=== PATIENT | female | born 1985 | race Caucasian/White ===

== ENCOUNTER → 2017-07-01 | Outpatient (CLI) | payer SELFPAY | LOC: RAD 18:12 | DX: M79.641 Pain in right hand (principal); Z91.81 History of falling ==

== ENCOUNTER 2018-09-18 22:30 | Emergency (ER) | payer SELFPAY ==
[~2018-09-18] VITALS: Ht 160 cm; Wt 54.5 kg
[~2018-09-18 22:30] MED LIST: ZOFRAN4 M2 PO
[2018-09-18 23:18] LABS: BASO # 0.1 (0.02-0.10); EOS # 0.2 (0.04-0.40); EOS % 1.7 % (1.0-5.0); HEMATOCRIT 42.4 % (37.0-47.0); HEMOGLOBIN 13.8 g/dL (12.5-16.0); LYMPH# 2.6 (1.50-4.00); MEAN CELL VOLUME 96 fl (78-100); MEAN CORPUSCULAR HEMOGLOBIN 31 pg (27-31); MEAN CORPUSCULAR HGB CONC 33 g/dL (33-37); MEAN PLATELET VOLUME 10.4 fl (7.4-10.4); MONO # 0.7 (0.20-0.80); NEU # 5.4 (1.40-6.50); PLATELET COUNT 222 K/mm3 (130-400); RED BLOOD COUNT 4.43 M/mm3 (4.10-5.30); RED CELL DISTRIBUTION WIDTH 12.2 % (11.5-14.5)
[2018-09-18 23:19] LABS: ALBUMIN 4.1 g/dL (3.5-5.0); ALCOHOL IN-HOUSE 184 mg/dL; ALT/SGPT 16 U/L (9-52); AST-SGOT 20 U/L (14-36); CALCIUM 9.1 mg/dL (8.4-10.2); CARBON DIOXIDE 24 mmol/L (22-30); GLUCOSE 84 mg/dL (65-105); POTASSIUM 3.9 mmol/L (3.6-5.0); SODIUM 144 mmol/L (137-145); TOTAL BILIRUBIN 0.3 mg/dL (0.2-1.3); TOTAL PROTEIN 7.1 g/dL (6.3-8.2)
[2018-09-18 23:28] LABS: ACETAMINOPHEN < 4 ug/mL (10-30)
[2018-09-18 23:39] LABS: URINE COLOR LT YELLOW
[2018-09-18 23:40] LABS: URINE APPEARANCE CLEAR; URINE BILIRUBIN NEGATIVE (NEGATIVE); URINE BLOOD NEGATIVE (NEGATIVE); URINE GLUCOSE NEGATIVE (NEGATIVE); URINE KETONE NEGATIVE (NEGATIVE); URINE LEUKOCYTE ESTERASE NEGATIVE (NEGATIVE); URINE NITRATE NEGATIVE (NEGATIVE); URINE PROTEIN(semi-quant) NEGATIVE (NEGATIVE); URINE UROBILINOGEN NORMAL (NORMAL); URINE WBC 0-1 /hpf (0-3)
[2018-09-19 05:30] VITALS: BP 114/74
== END 2018-09-19 06:00 | disposition home or self-care (01) ==
LOC: ED 22:30
PROVIDERS: Family Medicine
DX: R45.851 Suicidal ideations (principal); F32.9 Major depressive disorder, single episode, unspecified

== ENCOUNTER 2019-01-22 11:46 | Emergency (ER) | payer SELFPAY ==
[2019-01-22 14:21] VITALS: BP 123/75
== END 2019-01-22 13:53 | disposition home or self-care (01) ==
LOC: ED 11:46
DX: T45.0X1A Poisoning by antiallergic and antiemetic drugs, accidental (unintentional), initial encounter (principal); F41.9 Anxiety disorder, unspecified; F43.10 Post-traumatic stress disorder, unspecified

== ENCOUNTER 2019-02-20 00:09 | Emergency (ER) | payer SELFPAY ==
[~2019-02-20] VITALS: Ht 167.6 cm; Wt 68.2 kg
[2019-02-20 02:00] VITALS: BP 106/66
== END 2019-02-20 02:00 | disposition home or self-care (01) ==
LOC: ED 00:09
DX: S06.0X9A Concussion with loss of consciousness of unspecified duration, initial encounter (principal); F19.10 Other psychoactive substance abuse, uncomplicated; S50.12XA Contusion of left forearm, initial encounter; F17.210 Nicotine dependence, cigarettes, uncomplicated; Y04.8XXA Assault by other bodily force, initial encounter; Y92.009 Unspecified place in unspecified non-institutional (private) residence as the place of occurrence of the external cause

== ENCOUNTER 2019-05-02 13:08 | Emergency (ER) | payer SELFPAY ==
[~2019-05-02] VITALS: Ht 167.6 cm; Wt 75.0 kg
[2019-05-02] MEDS ORDERED: FLUOXETINE HCL20 MG PO (13:18)
[2019-05-02] MEDS ORDERED: TRAVEL SICKNESS25 M1 PO (13:18)
[2019-05-02] MEDS ORDERED: AUGMENTIN 875-1 EAC1 PO (13:34)
[2019-05-02 13:48] VITALS: BP 140/83
== END 2019-05-02 13:48 | disposition home or self-care (01) ==
LOC: ED 13:08
DX: S01.25XA Open bite of nose, initial encounter (principal); J34.0 Abscess, furuncle and carbuncle of nose; F17.210 Nicotine dependence, cigarettes, uncomplicated; Y04.1XXA Assault by human bite, initial encounter

== ENCOUNTER 2019-05-14 22:29 | Emergency (ER) | payer SELFPAY ==
[~2019-05-14] VITALS: Ht 167.6 cm; Wt 72.7 kg
[~2019-05-14 22:29] MED LIST changes: +AUGMENTIN 875-1 EAC1 PO; +FLUOXETINE HCL20 MG PO; +TRAVEL SICKNESS25 M1 PO
[2019-05-14 22:35] VITALS: BP 118/78
== END 2019-05-14 23:17 | disposition home or self-care (01) ==
LOC: ED 22:29
DX: F41.0 Panic disorder [episodic paroxysmal anxiety] (principal); F32.9 Major depressive disorder, single episode, unspecified; F17.210 Nicotine dependence, cigarettes, uncomplicated; Z91.14 Patient's other noncompliance with medication regimen; Z91.5 Personal history of self-harm

== ENCOUNTER 2019-05-30 01:14 | Emergency (ER) | payer SELFPAY ==
[~2019-05-30] VITALS: Ht 167.6 cm; Wt 72.7 kg
[2019-05-30] MEDS ORDERED: INDOMETHACIN50 M2 PO (01:18)
[2019-05-30 01:39] LABS: EOS % 0.6 % (1.0-5.0); HEMATOCRIT 45.1 % (37.0-47.0); LYMPH# 2.2 (1.50-4.00); MEAN CELL VOLUME 96 fl (78-100); MEAN CORPUSCULAR HEMOGLOBIN 32 pg (27-31); MEAN CORPUSCULAR HGB CONC 33 g/dL (33-37); MEAN PLATELET VOLUME 9.7 fl (7.4-10.4); MONO # 0.8 (0.20-0.80); PLATELET COUNT 231 K/mm3 (130-400); RED BLOOD COUNT 4.68 M/mm3 (4.10-5.30); RED CELL DISTRIBUTION WIDTH 12.7 % (11.5-14.5); WHITE BLOOD COUNT 7.1 K/mm3 (4.8-10.8)
[2019-05-30 01:49] LABS: ALBUMIN 3.9 g/dL (3.5-5.0)
[2019-05-30 01:50] LABS: POTASSIUM 3.6 mmol/L (3.5-5.1); SODIUM 138 mmol/L (136-145)
[2019-05-30 01:51] LABS: CALCIUM 8.5 mg/dL (8.3-10.5)
[2019-05-30 01:52] LABS: GLUCOSE 88 mg/dL (65-105); TOTAL PROTEIN 6.8 g/dL (6.4-8.3)
[2019-05-30 01:53] LABS: CARBON DIOXIDE 22 mmol/L (22-29)
[2019-05-30 01:54] LABS: TOTAL BILIRUBIN 0.4 mg/dL (0.2-1.2)
[2019-05-30 01:55] LABS: ALCOHOL IN-HOUSE 185 mg/dL (<10)
[2019-05-30 01:57] LABS: AST-SGOT 20 U/L (5-34)
[2019-05-30 01:59] LABS: ALT/SGPT 17 U/L (0-55)
[2019-05-30 02:05] LABS: ACETAMINOPHEN < 1 ug/mL
[2019-05-30 02:09] LABS: URINE APPEARANCE CLEAR; URINE BILIRUBIN NEGATIVE (NEGATIVE); URINE BLOOD NEGATIVE (NEGATIVE); URINE COLOR YELLOW; URINE GLUCOSE NEGATIVE (NEGATIVE); URINE KETONE NEGATIVE (NEGATIVE); URINE LEUKOCYTE ESTERASE NEGATIVE (NEGATIVE); URINE NITRATE NEGATIVE (NEGATIVE); URINE PROTEIN(semi-quant) NEGATIVE (NEGATIVE); URINE UROBILINOGEN NORMAL (NORMAL); URINE WBC 0-1 /hpf (0-3)
[2019-05-30 09:58] VITALS: BP 95/70
== END 2019-05-30 10:05 | disposition home or self-care (01) ==
LOC: ED 01:14
PROVIDERS: Nurse Practitioner Family
DX: F32.9 Major depressive disorder, single episode, unspecified (principal); F41.9 Anxiety disorder, unspecified; F43.10 Post-traumatic stress disorder, unspecified; F17.210 Nicotine dependence, cigarettes, uncomplicated; Z98.890 Other specified postprocedural states

== ENCOUNTER → 2019-10-26 | Outpatient (CLI) | payer SELFPAY ==
[~2019-10-26] MED LIST changes: +INDOMETHACIN50 M2 PO
== END ==
LOC: LAB 12:12
DX: R50.9 Fever, unspecified (principal); R05 Cough; R06.2 Wheezing; R43.2 Parageusia

== ENCOUNTER 2020-01-16 22:15 | Emergency (ER) | payer OTHER ==
[2020-01-16 22:38] VITALS: BP 127/89
[2020-01-16] MEDS ORDERED: PROAIR HFA0.09 MG/AC IH (22:52)
[2020-01-16 23:09] LABS: BASO # 0.1 (0.02-0.10); EOS # 0.4 (0.04-0.40); HEMATOCRIT 47.1 % (37.0-47.0); HEMOGLOBIN 15.8 g/dL (12.5-16.0); LYMPH# 3.2 (1.50-4.00); MEAN CELL VOLUME 98 fl (78-100); MEAN CORPUSCULAR HEMOGLOBIN 33 pg (27-31); MEAN CORPUSCULAR HGB CONC 34 g/dL (33-37); MEAN PLATELET VOLUME 9.8 fl (7.4-10.4); MONO # 0.8 (0.20-0.80); NEU # 5.2 (1.40-6.50); PLATELET COUNT 205 K/mm3 (130-400); RED BLOOD COUNT 4.82 M/mm3 (4.10-5.30); RED CELL DISTRIBUTION WIDTH 12.4 % (11.5-14.5); WHITE BLOOD COUNT 9.6 K/mm3 (4.8-10.8)
[2020-01-16 23:10] LABS: URINE WBC 0 /hpf (0-3)
[2020-01-16 23:23] LABS: POTASSIUM 3.3 mmol/L (3.5-5.1); SODIUM 136 mmol/L (136-145)
[2020-01-16 23:24] LABS: CALCIUM 8.2 mg/dL (8.3-10.5)
[2020-01-16 23:25] LABS: GLUCOSE 91 mg/dL (65-105)
[2020-01-16 23:26] LABS: CARBON DIOXIDE 19 mmol/L (22-29)
[2020-01-16 23:27] LABS: TOTAL BILIRUBIN 0.3 mg/dL (0.2-1.2)
[2020-01-16 23:28] LABS: ALCOHOL IN-HOUSE 271 mg/dL (<10)
[2020-01-16 23:29] LABS: URINE APPEARANCE CLEAR; URINE COLOR YELLOW
[2020-01-16 23:30] LABS: URINE BILIRUBIN NEGATIVE (NEGATIVE); URINE BLOOD TRACE (NEGATIVE); URINE GLUCOSE NEGATIVE (NEGATIVE); URINE KETONE NEGATIVE (NEGATIVE); URINE LEUKOCYTE ESTERASE NEGATIVE (NEGATIVE); URINE MUCUS PRESENT (NOT PRESENT); URINE NITRATE NEGATIVE (NEGATIVE); URINE PROTEIN(semi-quant) NEGATIVE (NEGATIVE); URINE UROBILINOGEN NORMAL (NORMAL)
[2020-01-16 23:31] LABS: AST-SGOT 18 U/L (5-34)
[2020-01-16 23:32] LABS: ALT/SGPT 16 U/L (0-55)
[2020-01-16 23:33] LABS: ACETAMINOPHEN < 1 ug/mL
== END 2020-01-16 23:45 ==
LOC: ED 22:15
PROVIDERS: Nurse Practitioner Family
DX: F10.129 Alcohol abuse with intoxication, unspecified (principal); R45.851 Suicidal ideations; F32.9 Major depressive disorder, single episode, unspecified; J45.909 Unspecified asthma, uncomplicated; F17.210 Nicotine dependence, cigarettes, uncomplicated; F43.10 Post-traumatic stress disorder, unspecified; Z90.89 Acquired absence of other organs

== ENCOUNTER 2021-04-09 08:31 | Outpatient (RCR) | payer MEDICAID ==
[~2021-04-09 08:31] MED LIST changes: +BUSPIRONE HYDRO10 MG PO; +LEXAPRO 10MG10 MG PO; +PROAIR HFA0.09 MG/AC IH
== END 2021-05-12 17:00 | disposition home or self-care (01) ==
LOC: OT 08:31
DX: S56.521A Laceration of other extensor muscle, fascia and tendon at forearm level, right arm, initial encounter (principal)